=== PATIENT | female | born 1980 | race African-American/Black ===

== ENCOUNTER 2022-02-20 16:47 | Observation (INO) | payer OTHER ==
[2022-02-20 17:35] VITALS: BMI 27.4
[2022-02-20] MEDS ORDERED: ACETAMINOPHEN 1000 MG/100 ML BAG IVPB ONE (19:16)
[2022-02-20] MEDS ORDERED: SODIUM CHLORIDE 0.9% 500 ML INFUS.BAG IV ONE (19:16)
[2022-02-20] MEDS ORDERED: ACETAMINOPHEN INJECTION 100 ML IVPB ONE (20:04)
[2022-02-20 20:38] LABS: BASO % 0.3 % (0-2.0); EOS % 0.3 % (0-4.5); HEMATOCRIT 37.3 % (32.4-45.2); HEMOGLOBIN 12.8 GM/dL (10.7-15.3); LYMPH % 20.8 % (8-40); MCH 32.1 pg (25.7-33.7); MCHC 34.2 g/dl (32.0-36.0); MEAN CELL VOLUME 93.8 fl (80-96); MEAN PLT VOLUME 9.3 fl (7.5-11.1); MONO % 10.3 % (3.8-10.2); NEUT % 68.3 % (42.8-82.8); PLATELET COUNT 232 10^3/uL (134-434); RBC 3.98 M/mm3 (3.60-5.2); RDW 21.2 % (11.6-15.6); WHITE BLOOD COUNT 6.1 K/mm3 (4.0-10.0)
[2022-02-20 20:45] LABS: INR 1.15 (0.83-1.09); PROTHROMBIN TIME (PATIENT) 13.3 SEC (9.7-13.0)
[2022-02-20 20:48] LABS: ACTIVATED PTT 30.1 SECONDS (25.2-36.5)
[2022-02-20 21:01] LABS: CHLORIDE 94 mmol/L (98-107); SODIUM 137 mmol/L (136-145)
[2022-02-20 21:03] LABS: ALBUMIN 3.8 g/dl (3.4-5.0); BLOOD UREA NITROGEN 3.5 mg/dL (7-18); CALCIUM 9.7 mg/dL (8.5-10.1); GLUCOSE,RANDOM 112 mg/dL (74-106)
[2022-02-20 21:04] LABS: CO2 28 mmol/L (21-32)
[2022-02-20 21:06] LABS: CREATININE 0.6 mg/dL (0.55-1.3); SGOT/AST 120 U/L (15-37)
[2022-02-20 21:07] LABS: SGPT/ALT 35 U/L (13-61)
[2022-02-20 21:08] LABS: BILIRUBIN,TOTAL 1.3 mg/dL (0.2-1); TOT PROT 7.7 g/dl (6.4-8.2)
[2022-02-20 21:09] LABS: ALK PHOS 177 U/L (45-117)
[2022-02-20 21:11] LABS: ANION GAP 15 MMOL/L (8-16)
[2022-02-20 21:14] LABS: ANISOCYTOSIS 1+; MACROCYTOSIS 0
[2022-02-20] MEDS ORDERED: KCL 10 MEQ IVPB 10 MEQ/100 ML INFUS.BAG IVPB ONE ×2 (21:41→23:06)
[2022-02-20 22:46] LABS: MAGNESIUM 1.2 mg/dL (1.8-2.4)
[2022-02-20 22:50] LABS: PHOSPHOROUS 2.6 mg/dL (2.5-4.9)
[2022-02-20] MEDS: KCL 10 MEQ IVPB 10 MEQ/100 ML INFUS.BAG IVPB SCH (23:16)
[2022-02-21] MEDS ORDERED: MAGNESIUM 1GM/D5W - 1 GM/100 ML IVPB IVPB ONE (01:11)
[2022-02-21] MEDS ORDERED: TRIMETHOBENZAMIDE HCL 200MG/2ML INJ IM ONE ×2 (01:58→01:59)
[2022-02-21] MEDS ORDERED: TRIMETHOBENZAMIDE HCL 200MG/2ML INJ IM PRN (03:20)
[2022-02-21] MEDS ORDERED: MAGNESIUM 2GM/50ML STERILE WATER IVPB IVPB ONE (03:45)
[2022-02-21] MEDS ORDERED: MAGNESIUM SULFATE IN WATER 2 GM/50 ML IVPB IVPB ONE (04:13)
[2022-02-21] MEDS ORDERED: ACETAMINOPHEN 1000 MG/100 ML BAG IVPB ONE (04:38)
[2022-02-21] MEDS ORDERED: ACETAMINOPHEN INJECTION 100 ML IVPB ONE (04:44)
[2022-02-21 05:28] LABS: EPI CELLS >36 /uL (0-25.1); HYALINE CASTS 1 /uL (0-3.1); URINE APPEARANCE CLEAR; URINE BACTERIA 619 /uL (0-1359); URINE BILIRUBIN NEGATIVE (NEGATIVE); URINE COLOR YELLOW; URINE GLUCOSE (UA) NEGATIVE (NEGATIVE); URINE KETONE NEGATIVE (NEGATIVE); URINE LEUK ESTERASE TRACE (NEGATIVE); URINE NITRITE NEGATIVE (NEGATIVE); URINE PROTEIN NEGATIVE (NEGATIVE); URINE RBC 11 /uL (0-23.9); URINE WBC 24 /uL (0-25.8)
[2022-02-21 05:38] LABS: HCG,QUALITATIVE URINE Negative
[2022-02-21] MEDS ORDERED: KCL 10 MEQ IVPB 10 MEQ/100 ML INFUS.BAG IVPB ONE ×3 (06:02→12:48)
[2022-02-21] MEDS: KCL 10 MEQ IVPB 10 MEQ/100 ML INFUS.BAG IVPB SCH ×3 (06:25→16:00)
[2022-02-21 07:47] LABS: BASO % 0.4 % (0-2.0); EOS % 0.4 % (0-4.5); HEMATOCRIT 34.8 % (32.4-45.2); HEMOGLOBIN 11.9 GM/dL (10.7-15.3); LYMPH % 17.7 % (8-40); MCH 32.1 pg (25.7-33.7); MCHC 34.2 g/dl (32.0-36.0); MEAN CELL VOLUME 93.7 fl (80-96); MEAN PLT VOLUME 9.8 fl (7.5-11.1); MONO % 11.9 % (3.8-10.2); NEUT % 69.6 % (42.8-82.8); PLATELET COUNT 219 10^3/uL (134-434); RBC 3.71 M/mm3 (3.60-5.2); RDW 20.3 % (11.6-15.6); WHITE BLOOD COUNT 6.6 K/mm3 (4.0-10.0)
[2022-02-21 08:07] LABS: CHLORIDE 100 mmol/L (98-107); SODIUM 136 mmol/L (136-145)
[2022-02-21 08:17] LABS: CALCIUM 8.9 mg/dL (8.5-10.1); CHOLESTEROL 201 mg/dL (50-200)
[2022-02-21 08:18] LABS: ALBUMIN 3.6 g/dl (3.4-5.0); BLOOD UREA NITROGEN 4.4 mg/dL (7-18); CO2 25 mmol/L (21-32); GLUCOSE,RANDOM 101 mg/dL (74-106); MAGNESIUM 2.3 mg/dL (1.8-2.4); SGPT/ALT 33 U/L (13-61); TRIGLYCERIDES 95 mg/dL (0-150)
[2022-02-21 08:21] LABS: CREATININE 0.6 mg/dL (0.55-1.3); HDL CHOLESTEROL 77 mg/dL (40-60); LDL CHOLESTEROL (ONLY SJRH) 90 mg/dL (5-100); PHOSPHOROUS 2.2 mg/dL (2.5-4.9); SGOT/AST 119 U/L (15-37)
[2022-02-21 08:22] LABS: BILIRUBIN,TOTAL 1.7 mg/dL (0.2-1)
[2022-02-21 08:23] LABS: TOT PROT 7.1 g/dl (6.4-8.2)
[2022-02-21 08:26] LABS: ALK PHOS 169 U/L (45-117)
[2022-02-21 08:34] LABS: ANION GAP 11 MMOL/L (8-16)
[2022-02-21] MEDS ORDERED: LISINOPRIL 5 MG TABLET ONE ×2 (08:58→17:31)
[2022-02-21] MEDS ORDERED: ENOXAPARIN NA (PORCINE) 40 MG/0.4 ML DISP.SYRIN SQ ONE (08:58)
[2022-02-21] MEDS ORDERED: ENOXAPARIN NA (PORCINE) 40 MG/0.4 ML DISP.SYRIN SQ SCH (10:00)
[2022-02-21] MEDS ORDERED: LISINOPRIL 5 MG TABLET PO SCH (10:00)
[2022-02-21] MEDS ORDERED: POTASSIUM CHLORIDE TABS 20 MEQ TABLET.ER (FP) PO ONE ×3 (10:19→22:39)
[2022-02-21] MEDS ORDERED: LISINOPRIL 5 MG TABLET PO ONE ×2 (13:16→16:35)
[2022-02-21] MEDS ORDERED: hydrALAZINE HCL 20 MG/ML VIAL IVPUSH ONE (16:27)
[2022-02-21] MEDS ORDERED: amLODIPine BESYLATE 5 MG TABLET (FP) PO SCH (16:30)
[2022-02-21] MEDS ORDERED: ACETAMINOPHEN 500 MG TABLET (FP) PO PRN (16:33)
[2022-02-21] MEDS ORDERED: hydrALAZINE HCL 20 MG/ML VIAL ONE (17:32)
[2022-02-21] MEDS ORDERED: ACETAMINOPHEN 500 MG TABLET (FP) ONE (17:56)
[2022-02-21 21:47] LABS: CHLORIDE 101 mmol/L (98-107); SODIUM 135 mmol/L (136-145)
[2022-02-21 21:48] LABS: BLOOD UREA NITROGEN 3.2 mg/dL (7-18); CALCIUM 9.2 mg/dL (8.5-10.1); CO2 20 mmol/L (21-32); GLUCOSE,RANDOM 99 mg/dL (74-106)
[2022-02-21 21:52] LABS: CREATININE 0.5 mg/dL (0.55-1.3)
[2022-02-21 21:59] LABS: ANION GAP 14 MMOL/L (8-16)
[2022-02-21] MEDS ORDERED: POTASSIUM CHLORIDE TABS 10 MEQ TABLET.ER (FP) PO ONE (22:29)
[2022-02-22 03:06] VITALS: BP 121/82; PULSE 86; TEMP 98.1
[2022-02-22] MEDS ORDERED: LISINOPRIL 10 MG TABLET PO SCH (10:00)
== END 2022-02-21 23:30 | disposition home or self-care (01) ==
LOC: JER 16:47 → JERBED 23:11
PROVIDERS: ADMIT Internal Medicine; ATTEND Nurse Practitioner Acute Care
PROC: 3E033NZ Introduction of Analgesics, Hypnotics, Sedatives into Peripheral Vein, Percutaneous Approach (ICD-10-PCS; principal; 2022-02-20)
PROC: 3E033GC Introduction of Other Therapeutic Substance into Peripheral Vein, Percutaneous Approach (ICD-10-PCS; 2022-02-20)
PROC: 3E0337Z Introduction of Electrolytic and Water Balance Substance into Peripheral Vein, Percutaneous Approach (ICD-10-PCS; 2022-02-20)
PROC: 3E023GC Introduction of Other Therapeutic Substance into Muscle, Percutaneous Approach (ICD-10-PCS; 2022-02-20)
DX: I10 Essential (primary) hypertension (principal); E83.42 Hypomagnesemia; Z86.16 Personal history of COVID-19; H53.8 Other visual disturbances; R74.01 Elevation of levels of liver transaminase levels; R11.2 Nausea with vomiting, unspecified; E87.6 Hypokalemia; Z88.0 Allergy status to penicillin; Z29.8 Encounter for other specified prophylactic measures
CPT/HCPCS: 36415; 70450-TC; 70551-TC; 76705-TC; 80048; 80053; 80061; 80307; 81003; 83735; 84100; 84132; 84443; 84484; 84703; 85025; 85610; 85730; 86704; 86708; 86803; 87340; 87517; 93005; 93010; 93880-TC; 96361; 96365; 96366; 96367; 96372; 96375; 96376; 99285-25; C9803-CS; G0378; U0003; U0005